=== PATIENT | female | born 1955 | race Caucasian/White ===

== ENCOUNTER 2019-03-12 06:16 | Outpatient (CLI) | payer MEDICARE, OTHER ==
[2019-03-12 12:10] LABS: #Basophils 0.1 thou/uL (0.0-0.2); #Eosinphils 0.4 thou/uL (0.0-0.7); #Lymphocytes 1.8 thou/uL (1.20-3.40); #Monocytes 0.8 thou/uL (0.11-0.59); #Neutrophils 4.4 thou/uL (1.40-6.50); %Basophils 1.1 % (0.0-1.0); %Eosinophils 5.4 % (0.0-10.0); %Lymphocytes 23.8 % (21.0-51.0); %Monocytes 10.4 % (0.0-10.0); %Neutrophils 59.4 % (42.0-75.0); Hemoglobin 13.9 g/dL (12.0-16.0); Mean Corpuscular HGB CONC 32.8 g/dL (32.0-36.0); Mean Corpuscular Hemoglobin 32.1 pg (27.0-31.0); Mean Corpuscular Volume 97.8 fL (78.0-98.0); Platelet Count 255 thou/uL (130-400); RBC Distribution Width 12.1 % (11.5-14.5); Red Blood Cell (RBC) Count 4.34 mill/uL (4.20-5.40); White Blood Cell (WBC) Count 7.5 thou/uL (4.8-10.8)
[2019-03-12 13:30] LABS: Anion Gap 14 mmol/L (10-20); BUN (Urea Nitrogen) 21 mg/dL (9.8-20.1); Calc. Creatinine Clearance 0 mL/min (70-130); Calcium 10.7 mg/dL (7.8-10.44); Carbon Dioxide 29 mmol/L (23-31); Chloride 100 mmol/L (98-107); Estimated GFR-MDRD 75; Glucose 93 mg/dL (80-115); Potassium 3.9 mmol/L (3.5-5.1); Sodium 139 mmol/L (136-145)
--- NOTE | 2019-03-15 15:15 | EKG ---
Test Reason : Blood Pressure : / mmHG Vent. Rate : 058 BPM Atrial Rate : 058 BPM P-R Int : 208 ms QRS Dur : 138 ms QT Int : 434 ms P-R-T Axes : 077 -55 025 degrees QTc Int : 426 ms Sinus bradycardia Left axis deviation Right bundle branch block T wave abnormality, consider lateral ischemia Abnormal ECG No previous ECGs available Confirmed by DR. Jayda SWIFT ([id number]) on 03/15/2019 3:15:24 PM Referred By: ROSIE Confirmed By:DR. Jayda SWIFT
== END 2019-03-12 06:17 | disposition home or self-care (01) ==
LOC: LABBT 06:16
PROVIDERS: ATTEND Surgery
DX: Z01.818 Encounter for other preprocedural examination (principal); K41.90 Unilateral femoral hernia, without obstruction or gangrene, not specified as recurrent; K40.90 Unilateral inguinal hernia, without obstruction or gangrene, not specified as recurrent
CPT/HCPCS: 80048; 85025; 93005; 93010

== ENCOUNTER → 2019-03-18 | Day surgery (SDC) | payer MEDICARE, OTHER ==
[2019-03-12 10:51] VITALS: BMI 36.5
[~2019-03-18] MED LIST: Bupivacaine PF 0.5% 30 ML VIAL ONE; Dexamethasone 20 MG/5 ML VIAL ONE; Esmolol 100 MG/10 ML VIAL ONE; Famotidine/PF 20 mg/2ml Vial ONE; Fentanyl 100 MCG/2 ML VIAL ONE; Glycopyrrolate 0.2 MG/ML 5 ML SYRINGE ONE; Lidocaine 1% PF 5 ML VIAL ONE; Lidocaine 1% w/Epinephrine 1:100K 20 ML VIAL ONE; Midazolam HCl 2 mg/2 ml Vial ONE; Ondansetron PF 4 MG/2 ML Vial ONE; PROPOFOL 200 MG/20 ML VIAL ONE; Rocuronium Bromide 10 MG/ML (10ML VIAL) ONE; Succinylcholine Chloride 20 MG/ML 10 ml SYRINGE FS ONE
--- NOTE | 2019-03-18 14:49 | OP ---
DATE OF PROCEDURE: 03/18/2019 PREOPERATIVE DIAGNOSIS: Left inguinal hernia. POSTOPERATIVE DIAGNOSES: 1. Left inguinal hernia. 2. Umbilical hernia. PROCEDURES PERFORMED: 1. Da Payam laparoscopic left inguinal hernia repair with mesh, da Payam 3DMax large. 2. Umbilical hernia repair with mesh, Ventralex ST 4 cm. ANESTHESIA: General. ESTIMATED BLOOD LOSS: Minimal. COMPLICATIONS: None. SPECIMEN: None. FINDINGS: Left inguinal hernia and umbilical hernia. DESCRIPTION OF PROCEDURE: The patient was taken to the operating room and laid supine on the operating room table. After general anesthetic was obtained, a Oliveira was placed. The abdomen was prepped and draped in a sterile fashion. A curved incision was made above the umbilicus, cautery dissected down to the fascia, where an umbilical hernia was found. The umbilical hernia was dissected to the umbilical stalk, which was amputated from the fascia. The 11-mm balloon trocar was placed. High-flow pneumoperitoneum was obtained. Left and right abdominal 8-mm robot trocars were placed. All ports were docked to the robot. The peritoneum was taken down in the left lower quadrant into the preperitoneal space. Preperitoneal space was bluntly dissected to pubic tubercle medially, anterior superior iliac crest laterally. The direct hernia contents were dissected back up high into the peritoneum. She had a small femoral hernia. She had a small indirect hernia. These were all dissected back high. 3DMax large mesh was brought in and placed in the abdominal cavity and M-labeled medial aspect was placed over pubic tubercle medially. The mesh was laid out lateral to cover the femoral direct and indirect areas. The mesh was sewn via Vicryl suture to the pubic tubercle medially into the posterior fascia laterally. The Stratafix was then used to reapproximate the peritoneum. All needles were removed from the abdomen and accounted for. The Ventralex ST small 4 cm was used to repair the umbilical defect and sewn via Nurolon sutures to the edge of the fascia. The tails were then cut at the level of the fascia. The mesh was covered by the fascia with an additional Nurolon suture. Umbilical stalk was tacked back down using 3-0 Vicryl, skin was closed using running 4-0 Monocryl and Dermabond. The patient was sent to Recovery in stable condition. All instrument counts, needle counts, and lap counts were correct. Job ID: [id number]
== END ==
LOC: SDC 09:56
PROVIDERS: ATTEND Surgery
PROC: 0YU64JZ Supplement Left Inguinal Region with Synthetic Substitute, Percutaneous Endoscopic Approach (ICD-10-PCS; principal; 2019-03-18)
PROC: 0WUF4JZ Supplement Abdominal Wall with Synthetic Substitute, Percutaneous Endoscopic Approach (ICD-10-PCS; 2019-03-18)
PROC: 8E0W4CZ Robotic Assisted Procedure of Trunk Region, Percutaneous Endoscopic Approach (ICD-10-PCS; 2019-03-18)
DX: K42.9 Umbilical hernia without obstruction or gangrene (principal); K40.90 Unilateral inguinal hernia, without obstruction or gangrene, not specified as recurrent; Z79.899 Other long term (current) drug therapy; Z88.0 Allergy status to penicillin; Z88.1 Allergy status to other antibiotic agents
CPT/HCPCS: 49650; 49652; C1781; J0690; J1100; J2001; J2250; J2405; J2704; J3010; S0020; S0028